=== PATIENT | female | born 1930 | race Asian ===

== ENCOUNTER 2019-02-15 12:28 | Emergency (ER) | payer MEDICARE, OTHER ==
[~2019-02-15] VITALS: Ht 160 cm; Wt 55.0 kg
[~2019-02-15 12:28] MED LIST: ASPI-817 PO; ATEN-51 PO; ATOR20TA38 PO; CELE200C PO; DICY10CA40 PO; DOCU-159 PO; DONE5TAB7 PO; IRON150C11 PO; LANT3I SC; LINA1TAB5 PO; LIPA1CAP45 PO; LOSA50TA14 PO; MECL12.574 PO; RALO60TA12 PO
[2019-02-15 12:30] VITALS: Ht 160 cm; Wt 55.0 kg
[2019-02-15] MEDS ORDERED: ACETAMINOPHEN 325 MG TAB PO ONE (13:00)
--- NOTE | 2019-02-15 13:47 | ERD ---
ER Documentation Chief Complaint Chief Complaint bilaterial knee x 2 days no trauma HPI This is an 89-year-old female with a past medical history of hypertension, hyperlipidemia, insulin-dependent diabetes, dementia, chronic constipation, arthritis who is presenting with exacerbated bilateral knee pain, left worse t reyes right. The patient is typically ambulatory, but she has had difficulty ambulating over the last 1 to 2 days secondary to knee pain. The patient is able to range her right knee without difficulty. It is sore but nontender. The patient endorses swelling to the left knee with tenderness on range of motion. She has not noticed any redness or induration or warmth to the left knee. The patient does not endorse any trauma or injury that she recalls. The patient denies feeling sick recently. The patient denies fever or chills. The patient has had no headache or vision changes. The patient does not endorse neck or back pain. The patient denies lightheadedness or dizziness. The patient has had no chest pain or trouble breathing. The patient denies nausea or vomiting. The patient denies abdominal pain. The patient denies changes to bowel movements or urination. The patient has had no focal deficits. The patient has had no weakness or numbness or tingling to the face or extremities. ROS All systems reviewed and are negative except as per history of present illness. Medications Home Meds Active Scripts Meclizine Hcl* (Antivert*) 12.5 Mg Tab, 12.5 MG PO Q6H PRN for DIZZINESS, #30 TAB Prov:JACQUELINE LEVY MD 05/04/16 Reported Medications Aspirin* (Aspirin* EC) 81 Mg Tablet., 81 MG PO DAILY, TAB 05/04/16 Atorvastatin Calcium* (Atorvastatin Calcium*) 20 Mg Tablet, 20 MG PO QHS, #30 TAB 05/04/16 Linagliptin-Metformin (Jentadueto) 2.5-1,000 Mg Tablet, 1 TAB PO BID, TAB 05/04/16 Mlxqat-Mhlmwpsc-Tjdkuez* (Lore SMITH* 36,000) 36,000 L-114,000-180,000 Unit Capsule.dr, 1 CAP PO WITH MEALS, CAP 05/04/16 Docusate Sodium* (Docusate Sodium*) 100 Mg Capsule, 100 MG PO BID, #60 CAP 05/04/16 Raloxifene Hcl* (Evista*) 60 Mg Tablet, 60 MG PO DAILY, TAB 05/04/16 Iron Polysaccharides Complex (Iferex 150) 150 Mg Capsule, 150 MG PO DAILY, CAP 05/04/16 Donepezil* (Donepezil*) 5 Mg Tablet, 5 MG PO DAILY, #30 TAB 05/04/16 Insulin Glargine* (Lantus*) 100 Unit/Ml Soln, 30 UNIT SC DAILY, #1 VIAL 05/04/16 Atenolol* (Atenolol*) 25 Mg Tablet, 25 MG PO DAILY, #30 TAB 05/04/16 Losartan Potassium* (Losartan Potassium*) 50 Mg Tablet, 50 MG PO DAILY, TAB 05/04/16 Dicyclomine HCl (Dicyclomine HCl) 10 Mg Capsule, 10 MG PO TID, CAP 05/04/16 Celecoxib* (Celebrex*) 200 Mg Capsule, 200 MG PO DAILY, CAP 05/04/16 Allergies Allergies: Coded Allergies: No Known Allergy (Unverified , 05/04/16) PMhx/Soc History of Surgery: Yes (Hysterectomy) Anesthesia Reaction: No Hx Neurological Disorder: No Hx Respiratory Disorders: No Hx Cardiac Disorders: Yes (Hypertension, hyperlipidemia, diabetes) Hx Psychiatric Problems: No Hx Miscellaneous Medical Probl: Yes (Arthritis, constipation) Hx Alcohol Use: No Hx Substance Use: No Hx Tobacco Use: No Smoking Status: Never smoker FmHx Family History: diabetes Physical Exam Vitals Vital Signs Date Temp Pulse Resp B/P (MAP) Pulse Ox O2 O2 Flow FiO2 Time Delivery Rate 02/15/19 97.8 78 21 118/60 100 Room Air 12:45 (79) 02/15/19 97.8 80 18 117/89 100 12:30 (98) Physical Exam Const: No acute distress Head: Atraumatic Eyes: Normal Conjunctiva ENT: Normal External Ears, Nose and Mouth. Neck: Full range of motion. No meningismus. Resp: Clear to auscultation bilaterally Cardio: Regular rate and rhythm, no murmurs Abd: Soft, non tender, non distended. Normal bowel sounds Skin: No petechiae or rashes Back: No midline or flank tenderness Ext: No cyanosis. Bilateral anterior knee tenderness. Left knee effusion with a ballotable patella. Full range of motion of the knees bilaterally, though left knee range of motion elicited pain. No erythema or induration to either leg. No obvious bony deformity or shortening of the legs. No lower extremity or pedal edema. Neur: Awake and alert Psych: Normal Mood and Affect Results 24 hrs Current Medications Medications Dose Sig/Cherri Start Time Status Last (Trade) Ordered Route PRN Stop Time Admin Dose Reason Admin 650 mg ONCE ONCE 02/15/19 DC 02/15/19 Acetaminophen PO 13:00 13:02 (Tylenol 02/15/19 13:01 Tab) Procedures/MDM MDM The patient's presentation warrants further investigation. Previous medical records, if available, were reviewed. IMAGING Imaging and Radiology interpretation reviewed. X-ray left knee FINDINGS: Mild osteopenia. No displaced fracture identified. Tricompartmental marginal osteophyte formation with at least moderate medial tibio-femoral compartment cartilage space narrowing on nonweightbearing images, and likely mild patellofemoral compartment cartilage space narrowing. Chondrocalcinosis. Large joint effusion. IMPRESSION: 1. Large joint effusion may be related to known inflammatory arthritis, and may be further evaluated with arthrocentesis. 2. Osteopenia. No displaced fracture identified. 3. Chondrocalcinosis. 4. Tricompartmental degenerative changes at least moderate in the medial tibio- femoral compartment. Electronically viewed and signed by Agata Noe Physician on 02/15/2019 13:27 TREATMENT/DISPOSITION The patient presents for nontraumatic knee pain. The patient has known ar thritis, and the x-ray does reveal tricompartmental degenerative changes. I do suspect this to be the etiology of her joint effusion. The patient is already on Celebrex at home. I also provided the patient with a dose of Tylenol in the emergency department. An Brown wrap was applied in the emergency department under my direct supervision. My suspicion for a septic joint is very low. An arthrocentesis in the emergency department could increase the patient's risk of seeding the joint with an infection. I do not feel that the benefits outweigh the risks at this time. I do feel that the patient would benefit from orthopedic evaluation in an outpatient setting. DISCHARGE Upon reevaluation of the patient, symptoms have improved. No emergent diagnoses were identified. At this time, I feel that the patient stable for discharge. The patient was instructed to follow-up with a primary care physician in 1-3 days. The patient will be given strict precautions with which to return to the emergency department. Prescriptions: Tylenol DISCLAIMER Inadvertent spelling and grammatical errors are likely due to EHR/dictation software use and do not reflect on the overall quality of patient care. Note that the electronic time recorded on this note does not necessarily reflect the actual time of the patient encounter. Departure Diagnosis: Primary Impression: Knee pain Chronicity: chronic Laterality: left Qualified Codes: M25.562 - Pain in left knee; G89.29 - Other chronic pain Additional Impression: Knee effusion, left Condition: Stable Patient Instructions: Reducing Knee Pain and Swelling Additional Instructions: Thank you for for coming to [facility] for your care today. Please ask your nurse or provider if you have questions about your care today and do not leave until all your questions have been answered. Please use any medications given as directed and follow-up with your doctor (or the doctor you were referred to) in the next 1-3 days. If you do not have a primary care doctor you may follow up at the [facility] or [facility] (listed below). You may also use motrin and tylenol as needed for fever and/or pain unless instructed otherwise by your provider or nurse. Indications for more urgent follow-up have been discussed, but you may return to the Emergency Department at ANY time for any worrisome or worsening symptoms. If you have abdominal pain, please know that no test or exam you received is perfect and you should follow up within 8 hours for continued pain. If you had any imaging studies today, such as an X-Ray or CT Scan, these studies will be reviewed later by a radiologist. You will be called if there are important findings that were not identified today, so make sure the contact information you provided at registration is correct. If you received any narcotic pain control medicine today, such as Vicodin, Morphine or Dilaudid, your coordination and judgment may be affected for a number of hours. Please do not drive or operate heavy machinery, and you may want someone to assist you at home. If you were given a prescription for narcotic medication, be aware that it is very addictive- use sparingly and only if necessary. PLEASE SEEK FURTHER EVALUATION AND MANAGEMENT AT YOUR DOCTORS OFFICE WITHIN THE NEXT 1-3 DAYS. IT IS YOUR RESPONSIBILITY TO MAKE AN APPOINTMENT FOR FOLOW-UP CARE. IF YOU HAVE A PRIMARY DOCTOR, PLEASE CALL THEIR OFFICE TO SCHEDULE AN APPOINTMENT FOR FOLLOW UP. IF YOU DO NOT HAVE A PRIMARY DOCTOR YOU CAN CALL OUR PHYSICIAN REFERRAL HOTLINE AT IF YOU CAN NOT AFFORD TO SEE A PHYSICIAN YOU CAN CHOSE FROM THE FOLLOWING [facility] CLINICS: [facility] [address] [facility] [address] [facility]. [facility] [address] [facility] [address] [facility] [address] [facility]. [facility]. [address] CLARISSA HARDY MD Feb 15, 2019 13:46
[2019-02-15] MEDS ORDERED: ACET500C5 PO (13:48)
[2019-02-15 17:08] VITALS: BP 108/62; PULSE 63; RESP 18
== END 2019-02-15 17:12 | disposition home or self-care (01) ==
LOC: E/R 12:28
DX: M25.462 Effusion, left knee (principal); I10 Essential (primary) hypertension; E11.9 Type 2 diabetes mellitus without complications; Z79.4 Long term (current) use of insulin; Z79.82 Long term (current) use of aspirin
CPT/HCPCS: 73562

== ENCOUNTER 2019-02-25 12:16 | Emergency (ER) | payer MEDICARE, OTHER ==
[~2019-02-25] VITALS: Ht 154.9 cm; Wt 50.0 kg
[~2019-02-25 12:16] MED LIST changes: +ACET500C5 PO; +AMLO2.5T78 PO; +ATOR10TA65 PO; +DEXL60CA2 PO; +DOCU-144 PO; +INSU100I33 SC; +LEVO5TAB28 PO; +METO-448 PO
[2019-02-25 12:18] VITALS: Ht 154.9 cm; Wt 50.0 kg
--- NOTE | 2019-02-25 12:49 | ERD ---
ER Documentation Chief Complaint Chief Complaint HYPOGLICEMIA BS 42, FELT WEAK, TREATED ON FIELD, A/O X3 ON ARRIVAL HPI This is an 89-year-old female with a past medical history of hypertension, hyperlipidemia, insulin-dependent diabetes, dementia, chronic constipation, arthritis who is presenting with generalized weakness and lethargy this morning. The patient was evaluated by her son this morning. She was found to be too weak to get out of bed. At that time, an ambulance was called. The paramedics found the patient's blood sugar to be at 40. She was started on a D10 drip. Her blood sugar came up to over 300, and her symptoms resolved. The patient is not on any oral diabetes medications. The patient endorses feeling cold in the room. She is currently hungry. She did not eat this morning. Per the son's report, the patient had not yet been given her insulin. The patient denies feeling sick recently. The patient denies fever or chills. The patient has had no headache or vision changes. The patient does not endorse neck or back pain. The patient denies lightheadedness or dizziness. The patient has had no chest pain or trouble breathing. The patient denies nausea or vomiting. The patient denies abdominal pain. The patient denies changes to bowel movements or urination. The patient has had no focal deficits. The patient has had no weakness or numbness or tingling to the face or extremities. ROS All systems reviewed and are negative except as per history of present illness. Medications Home Meds Reported Medications Metoprolol Tartrate* (Lopressor*) 25 Mg Tab, 25 MG PO DAILY, #60 TAB 02/25/19 Atorvastatin Calcium (Atorvastatin Calcium) 10 Mg Tablet, 10 MG PO QHS, #30 TAB 02/25/19 Amlodipine Besylate* (Amlodipine Besylate*) 2.5 Mg Tablet, 2.5 MG PO DAILY, #30 TAB 02/25/19 Levocetirizine Dihydrochloride (Xyzal) 5 Mg Tablet, 5 MG PO QPM, TAB 02/25/19 Aspirin* (Aspirin* EC) 81 Mg Tablet., 81 MG PO DAILY, TAB 02/25/19 Dexlansoprazole (Dexilant) 60 Mg Esau., 60 MG PO DAILY, #30 CAP 02/25/19 Insulin Glargine,Hum.rec.anlog (Basaglar Kwikpen U-100) 100 Unit/1 Ml Insuln.pen, 0 SC BID, EA INJECT 20 UNITS-QAM AND 15 UNITS-QPM 02/25/19 Docusate Sodium* (Colace*) 100 Mg Capsule, 100 MG PO BID, #30 CAP 02/25/19 Donepezil* (Donepezil*) 5 Mg Tablet, 5 MG PO DAILY, #30 TAB 02/25/19 Discontinued Reported Medications Aspirin* (Aspirin* EC) 81 Mg Tablet.dr, 81 MG PO DAILY, TAB 05/04/16 Atorvastatin Calcium* (Atorvastatin Calcium*) 20 Mg Tablet, 20 MG PO QHS, #30 TAB 05/04/16 Linagliptin-Metformin (Jentadueto) 2.5-1,000 Mg Tablet, 1 TAB PO BID, TAB 05/04/16 Zckphl-Akuokpeh-Azfhdcu* (Lore SMITH* 36,000) 36,000 L-114,000-180,000 Unit Capsule.dr, 1 CAP PO WITH MEALS, CAP 05/04/16 Docusate Sodium* (Docusate Sodium*) 100 Mg Capsule, 100 MG PO BID, #60 CAP 05/04/16 Raloxifene Hcl* (Evista*) 60 Mg Tablet, 60 MG PO DAILY, TAB 05/04/16 Iron Polysaccharides Complex (Iferex 150) 150 Mg Capsule, 150 MG PO DAILY, CAP 05/04/16 Donepezil* (Donepezil*) 5 Mg Tablet, 5 MG PO DAILY, #30 TAB 05/04/16 Insulin Glargine* (Lantus*) 100 Unit/Ml Soln, 30 UNIT SC DAILY, #1 VIAL 05/04/16 Atenolol* (Atenolol*) 25 Mg Tablet, 25 MG PO DAILY, #30 TAB 05/04/16 Losartan Potassium* (Losartan Potassium*) 50 Mg Tablet, 50 MG PO DAILY, TAB 05/04/16 Dicyclomine HCl (Dicyclomine HCl) 10 Mg Capsule, 10 MG PO TID, CAP 05/04/16 Celecoxib* (Celebrex*) 200 Mg Capsule, 200 MG PO DAILY, CAP 05/04/16 Discontinued Scripts Acetaminophen* (Tylophen*) 500 Mg Capsule, 1 CAP PO Q6H PRN for MILD PAIN(1-3)OR ELEVATED TEMP, #20 CAP Prov:CLARISSA GIRON MD 02/15/19 Meclizine Hcl* (Antivert*) 12.5 Mg Tab, 12.5 MG PO Q6H PRN for DIZZINESS, #30 TAB Prov:JACQUELINE LEVY MD 05/04/16 Allergies Allergies: Coded Allergies: No Known Allergy (Unverified , 02/25/19) PMhx/Soc History of Surgery: Yes (Hysterectomy) Anesthesia Reaction: No Hx Neurological Disorder: No Hx Respiratory Disorders: No Hx Cardiac Disorders: Yes (Hypertension, hyperlipidemia, diabetes) Hx Psychiatric Problems: No Hx Miscellaneous Medical Probl: Yes (Arthritis, constipation, chronic kidney disease) Hx Alcohol Use: No Hx Substance Use: No Hx Tobacco Use: No FmHx Family History: diabetes Physical Exam Vitals Vital Signs Date Temp Pulse Resp B/P (MAP) Pulse Ox O2 O2 Flow FiO2 Time Delivery Rate 02/25/19 98.1 82 18 171/88 99 12:18 (115) Physical Exam Const: No apparent distress, well-developed, well-nourished Head: Normocephalic, Atraumatic Eyes: Normal Conjunctiva. Extraocular movements intact. Pupils equal, round and reactive to light ENT: Normal External Ears, Nose and Mouth. Neck: Full range of motion. No meningismus. Resp: Clear to auscultation bilaterally, No wheezes, rales or rhonchi Cardio: Regular rate and rhythm. No murmurs, rubs or gallops Abd: Soft, non tender, non distended. Normal bowel sounds Skin: No petechiae or rashes Back: No midline tenderness. No CVA tenderness Ext: No cyanosis, or edema Neur: Awake and alert, oriented 4. Cranial nerves intact. No facial droop. Normal strength, sensation and coordination. Psych: Normal Mood and Affect Result Diagram: 02/25/19 1236 02/25/19 1236 Results 24 hrs Laboratory Tests Test 02/25/19 12:36 02/25/19 14:07 White Blood Count 5.3 10^3/ul Red Blood Count 3.76 10^6/ul Hemoglobin 12.2 g/dl Hematocrit 38.1 % Mean Corpuscular Volume 101.3 fl Mean Corpuscular Hemoglobin 32.4 pg Mean Corpuscular Hemoglobin Concent 32.0 g/dl Red Cell Distribution Width 12.8 % Platelet Count 267 10^3/UL Mean Platelet Volume 8.9 fl Immature Granulocytes % 0.400 % Neutrophils % 63.6 % Lymphocytes % 22.9 % Monocytes % 7.5 % Eosinophils % 5.4 % Basophils % 0.2 % Nucleated Red Blood Cells % 0.0 /100WBC Immature Granulocytes # 0.020 10^3/ul Neutrophils # 3.4 10^3/ul Lymphocytes # 1.2 10^3/ul Monocytes # 0.4 10^3/ul Eosinophils # 0.3 10^3/ul Basophils # 0.0 10^3/ul Nucleated Red Blood Cells # 0.0 10^3/ul Sodium Level 139 mmol/L Potassium Level 4.2 mmol/L Chloride Level 107 mmol/L Carbon Dioxide Level 22 mmol/L Anion Gap 10 Blood Urea Nitrogen 16 mg/dl Creatinine 1.50 mg/dl Est Glomerular Filtrat Rate mL/min mL/min Glucose Level 199 mg/dl Calcium Level 9.7 mg/dl Bedside Glucose 181 mg/dL Procedures/MDM MDM The patient's presentation warrants further investigation. Previous medical records, if available, were reviewed. LABS The patient's laboratory testing was obtained and reviewed. No emergent treatment was required unless described below. CBC: No E/o systemic infection or severe anemia or thrombocytopenia Chemistry: No E/o severe acidosis or alkalosis or diabetic ketoacidosis. Elevated creatinine in line with previous studies, chronic kidney disease evident. EKG EKG read by me: Rate/Rhythm: Regular rate and rhythm at a rate of 78 bpm Intervals: Normal [place]: Normal Impression: Nonspecific repolarization changes without evidence of acute ischemia or arrhythmia TREATMENT/DISPOSITION The patient presents for an episode of hypoglycemia. The patient was given sugar in route to the hospital with resolution of her hyperglycemia and resol ution of her symptoms. The patient is not on any oral diabetes medications. I have decreased suspicion for refractory hypoglycemia. The patient was fed in the emergency department. The patient's blood sugar remained stable. The patient has a reassuring physical exam. The patient is not clinically orthostatic. The patient is not dizzy. I have decreased suspicion for vertigo. The patient has no signs of emergent or symptomatic anemia. The patient does not have any emergent electrolyte or metabolic emergencies. I have decrease suspicion for a thyroid disorder. The patient is not toxic appearing. I have decreased suspicion for an infectious etiology of symptoms. The patient's EKG is reassuring. I have low suspicion for acute coronary syndrome. I do not see evidence of any emergent cardiac arrhythmia, which includes but is not limited to heart block, Brugada syndrome or WPW. The patient has no heart murmurs or rales. I have low suspicion for hypertrophic cardiomyopathy. I do not see evidence of CHF. The patient does not endorse any chest or pleuritic pain. The history is negative for bleeding or clotting disorders. The patient has not been involved in any recent prolonged trips or surgeries or hospitalizations. The patient has no calf tenderness or swelling. I have decreased suspicion for PE as the etiology of symptoms. The patient has no focal deficits. The neurologic exam is reassuring. I have decreased suspicion for cerebral ischemia. There was no trauma or injury. There is no personal or family history of cerebral aneurysm. I have decreased suspicion for SAH or other ICH. I have low suspicion for temporal arteritis, cavernous venous thrombosis, subdural hematoma, epidural hematoma, meningitis. DISCHARGE Upon reevaluation of the patient, symptoms have improved. No emergent diagnoses were identified. At this time, I feel that the patient stable for discharge. The patient was instructed to follow-up with a primary care physician in 1-3 days. The patient will be given strict precautions with which to return to the emergency department. Prescriptions: None The patient's blood pressure was elevated at greater than 120/80 while in the emergency department. The patient was otherwise stable with no evidence of hypertensive urgency or emergency. The patient does not require admission for blood pressure control. I have discussed with the patient the risks of hypertension. I have instructed the patient to return to the ER for any new or worsening symptoms including chest pain, shortness of breath, headache, blurred vision, confusion, nausea, vomiting or LOC. I have advised the patient to follow up with the primary care physician for outpatient monitoring and treatment for hypertension in 1-3 days. DISCLAIMER Inadvertent spelling and grammatical errors are likely due to EHR/dictation software use and do not reflect on the overall quality of patient care. Note that the electronic time recorded on this note does not necessarily reflect the actual time of the patient encounter. Departure Diagnosis: Primary Impression: Hypoglycemia Additional Impressions: Transient alteration of awareness Generalized weakness Fatigue Fatigue type: unspecified Qualified Codes: R53.83 - Other fatigue Chronic kidney disease Chronic kidney disease stage: unspecified stage Qualified Codes: N18.9 - Chronic kidney disease, unspecified Condition: Stable Patient Instructions: Generalized Weakness, Hypoglycemia (Low Blood Sugar) Additional Instructions: It is very important to monitor your sugar closely given that you are on diabetes and take insulin. Please make sure to eat anytime you give yourself insulin. It is very important to follow-up with your primary care physician for this episode of low blood sugar. Thank you for for coming to [facility] for your care today. Please ask your nurse or provider if you have questions about your care today and do not leave until all your questions have been answered. Please use any medications given as directed and follow-up with your doctor (or the doctor you were referred to) in the next 1-3 days. If you do not have a primary care doctor you may follow up at the [facility] or [facility] (listed below). You may also use motrin and tylenol as needed for fever and/or pain unless instructed otherwise by your provider or nurse. Indications for more urgent follow-up have been discussed, but you may return to the Emergency Department at ANY time for any worrisome or worsening symptoms. If you have abdominal pain, please know that no test or exam you received is perfect and you should follow up within 8 hours for continued pain. If you had any imaging studies today, such as an X-Ray or CT Scan, these studies will be reviewed later by a radiologist. You will be called if there are important findings that were not identified today, so make sure the contact information you provided at registration is correct. If you received any narcotic pain control medicine today, such as Vicodin, Morphine or Dilaudid, your coordination and judgment may be affected for a number of hours. Please do not drive or operate heavy machinery, and you may want someone to assist you at home. If you were given a prescription for narcotic medication, be aware that it is very addictive- use sparingly and only if necessary. PLEASE SEEK FURTHER EVALUATION AND MANAGEMENT AT YOUR DOCTORS OFFICE WITHIN THE NEXT 1-3 DAYS. IT IS YOUR RESPONSIBILITY TO MAKE AN APPOINTMENT FOR FOLOW-UP CARE. IF YOU HAVE A PRIMARY DOCTOR, PLEASE CALL THEIR OFFICE TO SCHEDULE AN APPOINTMENT FOR FOLLOW UP. IF YOU DO NOT HAVE A PRIMARY DOCTOR YOU CAN CALL OUR PHYSICIAN REFERRAL HOTLINE AT IF YOU CAN NOT AFFORD TO SEE A PHYSICIAN YOU CAN CHOSE FROM THE FOLLOWING [facility] CLINICS: [facility] [address] [facility] [address] [facility] [address] [facility] [address] [facility] [address] [facility]. [facility]. [address] CLARISSA HARDY MD Feb 25, 2019 12:48
[2019-02-25 14:13] VITALS: BP 129/74; PULSE 76; RESP 20
== END 2019-02-25 14:14 | disposition home or self-care (01) ==
LOC: E/R 12:16
DX: N18.9 Chronic kidney disease, unspecified (principal); R53.83 Other fatigue; E11.22 Type 2 diabetes mellitus with diabetic chronic kidney disease; E11.65 Type 2 diabetes mellitus with hyperglycemia; I12.9 Hypertensive chronic kidney disease with stage 1 through stage 4 chronic kidney disease, or unspecified chronic kidney disease; Y92.9 Unspecified place or not applicable; Z79.4 Long term (current) use of insulin
CPT/HCPCS: 36415; 80048; 82962; 85025; 93005